=== PATIENT | female | born 1965 ===

== ENCOUNTER → 2025-01-15 15:26 | Outpatient (REF) | payer MEDICARE, SELFPAY ==
[2025-01-15 15:59] LABS: Body Fluid Mononuclear 11.9 %; Body Fluid Polymorphonuclear 88.1 %; Body Fluid WBC 19445 /CUMM
[2025-01-15 16:07] LABS: Body Fluid Second Tech FB
== END ==
LOC: REG 15:26
PROVIDERS: ATTENDING PHYSICIAN Physician Assistant Surgical
DX: M25.461 Effusion, right knee (principal)
CPT/HCPCS: 89051; 89060